=== PATIENT | male | born 1965 | race Caucasian/White ===

== ENCOUNTER 2017-03-19 17:39 | Emergency (ER) | payer OTHER ==
--- NOTE | ~2017-03-19 | CR282 ---
[facility] A Service [facility] RADIOLOGY TEXT RESULTS PATIENT: RANDY TRAYLOR LOCATION: SED : 63 UNIT #: [id number] AGE: [address]: Lexy Dubon APRN SEX: M ORDER DR: [id number] [place] [id number] E MR#: [id number] Acc #: [id number] NAME: RANDY TRAYLOR. : 1965 SEX: M STUDY DATE/TIME: 03/19/2017 17:14 UNIT: SED ROOM: STUDY DESCRIPTION: CR Wrist Min 3 View Rt Attending Physician: Lexy Dubon A.P.R.N. Ordering Physician: Ambrosio Wall M.D. MEDICAL IMAGING REPORT This report is preliminary unless electronic signature is present. EXAM Right wrist series 03/19/2017 HISTORY Trauma. A door hit him and he ran into guard rail. Pain. Injury. Happened 2 weeks ago, right wrist area. TECHNIQUE AP, lateral and oblique radiographs of the right wrist are presented. COMPARISON STUDIES Comparison to a right hand series dated 09/18/2008. FINDINGS There is a complete, transverse, slightly oblique, hairline fracture through the distal shaft of the ulna at the level approximately 2.1 cm proximal to the ulnar articular surface. No distraction, displacement or angulation. No intraarticular extent. No other fractures are seen. The carpal bones appear intact. Soft tissue swelling over the ulnar/dorsal aspect of the distal forearm and wrist. The distal ulnar articular surface projects posterior to the articular surface of the radius but this appears unchanged from hand series in September 2008 and is thought to be the normal alignment for this patient. Dictated by... Bang Perdomo M.D. THIS IS AN ELECTRONICALLY VERIFIED REPORT Bang Perdomo M.D. at 03/20/2017 2:38 PM [facility] A Service [facility] RADIOLOGY TEXT RESULTS PATIENT: RANDY TRAYLOR LOCATION: SED : 63 UNIT #: [id number] AGE: [address]: Lexy Dubon APRN SEX: M ORDER DR: MARSHALL/rico TD: 03/19/2017 22:06 JOB #: [id number] MEDICAL IMAGING REPORT Page 1 of 1
[~2017-03-19 17:39] MED LIST: BACITRACIN OP3.5 GM OD; FISH OIL 1,0001 CAP PO; FLOMAX0.4 MG PO; LORTAB 10/500 T1 TAB PO; MULTI VITAMIN1 EACH PO; NEXIUM PO; NO MEDICATIONS; PROTONIX PO; TYLOX 5/500 CAP1 CAP PO; VOLTAREN75 MG PO
== END 2017-03-19 18:40 | disposition home or self-care (01) ==
LOC: SED 17:39
DX: S52.601A Unspecified fracture of lower end of right ulna, initial encounter for closed fracture (principal); S40.811A Abrasion of right upper arm, initial encounter; I10 Essential (primary) hypertension; K21.9 Gastro-esophageal reflux disease without esophagitis; V87.8XXA Person injured in other specified noncollision transport accidents involving motor vehicle (traffic), initial encounter
CPT/HCPCS: 29125; 29515; 73110; 99283

== ENCOUNTER 2017-07-29 23:03 | Emergency (ER) | payer OTHER ==
[~2017-07-29] VITALS: Ht 185.4 cm; Wt 72.6 kg
--- NOTE | ~2017-07-29 | EKG ---
PATIENT: RANDY TRAYLOR UNIT #: [id number] Ventricular Rate: 92 BPM Atrial Rate: 92 BPM P-R Interval: 138 ms QRS Duration: 78 ms Q-T Interval: 354 ms QTC Calculation(Bezet): 437 ms P [place]: 54 degrees Calculated R [place]: 78 degrees Calculated T [place]: 55 degrees Diagnosis Line: Normal sinus rhythm Diagnosis Line: Normal ECG Diagnosis Line: No previous ECGs available Diagnosis Line: Confirmed by JAEL BHAGAT MD ([id number]) on 08/01/2017 Diagnosis Line: 7:01:39 PM INTERPRETING MD: LEOLA BERRY
--- NOTE | ~2017-07-29 | CR229 ---
[facility] A Service of [facility] & [facility] RADIOLOGY TEXT RESULTS PATIENT: RANDY TRAYLOR LOCATION: SED : 63 UNIT #: [id number] AGE: [address]: Adam Allan MD SEX: M ORDER DR: [id number] [place] [id number] E MR#: [id number] Acc #: [id number] NAME: RANDY TRAYLOR : 1965 SEX: M STUDY DATE/TIME: 07/30/2017 0:02 UNIT: SED ROOM: STUDY DESCRIPTION: CR Shoulder Min 2 View Lt Attending Physician: Adam Allan M.D. Ordering Physician: Adam Allan M.D. Primary Care Physician: Primary Care Physician No MEDICAL IMAGING REPORT This report is preliminary unless electronic signature is present. EXAM Left shoulder 3 views HISTORY Shoulder pain after fall today. FINDINGS Three views of the left shoulder demonstrate left apical pneumothorax measuring close to 20%. Left shoulder alignment is satisfactory. No fracture, joint space narrowing or dislocation. Mild degenerative changes at the acromioclavicular joint. Dictated by... Hoang Artis M.D. THIS IS AN ELECTRONICALLY VERIFIED REPORT Hoang Artis M.D. at 07/31/2017 4:15 AM PATRICIA/jae TD: 07/30/2017 08:49 JOB #: [id number] MEDICAL IMAGING REPORT Page 1 of 1
--- NOTE | ~2017-07-29 | CR58 ---
[facility] A Service [facility] RADIOLOGY TEXT RESULTS PATIENT: RANDY TRAYLOR LOCATION: SED : 63 UNIT #: [id number] AGE: [address]: Adam Allan MD SEX: M ORDER DR: [id number] [place] [id number] E MR#: [id number] Acc #: [id number] NAME: RANDY TRAYLOR : 1965 SEX: M STUDY DATE/TIME: 07/30/2017 0:02 UNIT: SED ROOM: STUDY DESCRIPTION: CR Cervical Spine 2 or 3 Views Attending Physician: Adam Allan M.D. Ordering Physician: Adam Allan M.D. Primary Care Physician: Primary Care Physician No MEDICAL IMAGING REPORT This report is preliminary unless electronic signature is present. EXAM Cervical spine 3 views HISTORY Neck pain after fall today. FINDINGS Three views of the cervical spine demonstrate moderately severe degenerative disc space narrowing at C5-C6 and C6-C7 with large anterior marginal osteophytes at these levels. There is also moderate sized anterior marginal osteophyte at C4-5. Mild degenerative facet arthropathy in the lower cervical spine. No fracture or subluxation. No precervical soft tissue swelling. IMPRESSION No acute findings. No fracture. Degenerative and hypertrophic changes in the lower cervical spine. Dictated by... Hoang Artis M.D. THIS IS AN ELECTRONICALLY VERIFIED REPORT Hoang Artis M.D. at 07/31/2017 4:15 AM DFL/diego TD: 07/30/2017 08:50 JOB #: [id number] MEDICAL IMAGING REPORT [facility] A Service [facility] RADIOLOGY TEXT RESULTS PATIENT: RANDY TRAYLOR LOCATION: SED : 63 UNIT #: [id number] AGE: [address]: Adam Alaln MD SEX: M ORDER DR: Page 1 of 1
--- NOTE | ~2017-07-29 | CR63 ---
[facility] A Service of [facility] & [facility] RADIOLOGY TEXT RESULTS PATIENT: RANDY TRAYLOR LOCATION: SED : 63 UNIT #: [id number] AGE: [address]: Adam Allan MD SEX: M ORDER DR: [id number] [place] [id number] E MR#: [id number] Acc #: [id number] NAME: RANDY TRAYLOR : 1965 SEX: M STUDY DATE/TIME: 07/30/2017 0:02 UNIT: SED ROOM: STUDY DESCRIPTION: CR Chest 2 View Attending Physician: Adam Allan M.D. Ordering Physician: Adam Allan M.D. Primary Care Physician: Primary Care Physician No MEDICAL IMAGING REPORT This report is preliminary unless electronic signature is present. EXAM PA and lateral chest HISTORY Left chest pain after fall today. FINDINGS Two views of the chest demonstrate left apical pneumothorax measuring close to 20%. No focal infiltrates or effusions. Moderate hypertrophic changes lower thoracic spine. Cardiac and mediastinal contours are within normal limits. Partly visualized right shoulder prosthesis. IMPRESSION 1. Approximately 20% left apical pneumothorax. 2. No focal infiltrates. Dictated by... Hoang Artis M.D. THIS IS AN ELECTRONICALLY VERIFIED REPORT Hoang Artis M.D. at 07/31/2017 4:15 AM DFL/elsi TD: 07/30/2017 09:00 JOB #: [id number] MEDICAL IMAGING REPORT Page 1 of 1
== END 2017-07-30 02:02 | disposition hospice, home (50) ==
LOC: SED 23:03
DX: J93.83 Other pneumothorax (principal); I10 Essential (primary) hypertension; K21.9 Gastro-esophageal reflux disease without esophagitis; F17.200 Nicotine dependence, unspecified, uncomplicated; W18.39XA Other fall on same level, initial encounter; Y92.009 Unspecified place in unspecified non-institutional (private) residence as the place of occurrence of the external cause
CPT/HCPCS: 71020; 72040; 73030; 93005; 96361; 96374; 99285; J2270